=== PATIENT | male | born 2005 | race Caucasian/White ===

== ENCOUNTER 2024-01-12 15:10 | Outpatient (CLI) | payer BC, SELFPAY ==
[2024-01-12 15:55] LABS: Alanine Aminotransferase 23 U/L (6-50); Albumin Level 4.9 g/dL (3.7-5.6); Alkaline Phosphatase 62 U/L (58-237); Anion Gap 9 mmol/L (4-12); Aspartate Amino Transferase 28 U/L (17-59); Bilirubin,Total 0.5 mg/dL (0.2-1.3); Blood Urea Nitrogen 20 mg/dL (8-21); Calcium 9.6 mg/dL (8.9-10.7); Carbon Dioxide 28 mmol/L (22-30); Chloride 103 mmol/L (98-107); Estimated Glomerular Filt Rate > 60; Glucose 85 mg/dL (65-110); Potassium 3.9 mmol/L (3.4-5.0); Sodium 140 mmol/L (134-143)
[2024-01-12 16:04] LABS: Hematocrit 45.9 % (42.0-52.0); Hemoglobin 15.9 g/dL (14.0-18.0); Mean Corpuscular HGB Conc 34.6 g/dl (32-36); Mean Corpuscular Hemoglobin 30.9 pg (26-34); Mean Corpuscular Volume 89.3 fl (80-100); Mean Platelet Volume 10.7 fl (7.4-10.4); Platelet Count Result 242 k/mm3 (150-375); Red Blood Count 5.14 M/mm3 (4.6-6.20); Red Cell Distribution Width 11.9 % (11.5-14.5); White Blood Count 5.6 K/mm3 (4.5-10.0)
== END 2024-01-12 15:11 | disposition home or self-care (01) ==
LOC: ANHLAB 15:12
PROVIDERS: PCP Family Medicine; Visit Provider Family Medicine
DX: G80.8 Other cerebral palsy (principal)
CPT/HCPCS: 36415; 80053; 84443; 85027

== ENCOUNTER 2024-10-22 14:38 | Outpatient (CLI) | payer BC, SELFPAY ==
--- OUTSIDE RECORDS SUMMARY | 2024-10-22 14:42 | XMS_ITS | Clinical Summary ---
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 Esotropia 05/22/2011 Hemiplegic cerebral palsy 08/15/2010 Encounters Date Type Department Care Team Description 08/10/2024 Telephone [facility] Pediatric Neurology [facility] [address] [place] [address] Hailey Avila MD PhD from Last 3 Months Immunizations Immunization Administration Dates Next Due DTaP 07/16/2005 DTaP / Hep B / IPV 2004,2004, 004 DTaP / IPV 03/07/2010 HPV, Quadrivalent 05/17/2016 HPV9 05/16/2017 Hep A, Pediatric 02/19/2007,04/17/2006 Hib (PRP-OMP) 07/16/2005, 5,2004,06/18 Influenza LAIV (Nasal) 05/18/2013,2011,2011,04/24 Influenza, Live, Intranasal, Quadrivalent 05/24/2014 Influenza, Quadrivalent, Angélica l Culture-based MDCK, Preservative Free, Antibiotic Free, Intramuscular 04/23/2020 Influenza, Quadrivalent, Spl it, Intramuscular 05/22/2019 Influenza, Quadrivalent, Spl it, Preservative Free, Intramuscular 05/22/2019,05/18/2018,05/16/2017,04/08,05/10/2015 MMR 05/05/2009,04/23/2005 Meningococcal MCV4P (Menactra) 10/13/2020,2014 Pneumococcal Conjugate 7-Valent 07/16/19 06,2004,2004,06/18 Tdap 05/24/2014 Varicella 05/05/2009,04/23/2005 Medical History Medical History Date Comments Personal history of other di seases of the nervous system and sense organs History of periven tricular leukomalacia - (Added by TW Conv) Cerebral palsy (HCC) Family History Medical History Relation Name Comments No Known Problems Father No Known Problems Mother Relation Name Status Comments Father Alive Mother Alive Social History Tobacco Use Types Packs/Day Years Used Date Smoking Tobacco: Never Smokeless Tobacco: Never Personal Safety Answer Date Recorded Getting School Help Needed Not on file 09/19 Sex and Gender Information Value Date Recorded Sex Assigned at Not on file 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 Gender Identity Not on file Sexual Orientation Not on file Obstetrics History Last Filed Vital Signs Vital Sign Reading Time Taken Comments Blood Pressure 119/69 09/16/2022 4:30 PM CDT Pulse 99 09/16/2022 4:30 PM CDT Temperature 37.2 C (98.9 F) 09/16/2022 4:30 PM CDT Respiratory Rate 18 09/16/2022 4:30 PM CDT Oxygen Saturation - - Inhaled Oxygen Concentration - - Weight 80.5 kg (177 lb 6.4 oz) 09/16/2022 4:30 P M CDT Height 175 cm (5' 8.9 ) 09/16/2022 4:30 PM CDT Body Mass Index 26.28 09/16/2022 4:30 PM CDT Plan of Treatment Health Maintenance Due Date Last Done Comments Depression Screening 2004 Hepatitis C Screening 2004 Meningococcal B Vaccine (1 o f 2 - Standard) 2020 Regular Well Visit/Exam 18-64 2022 DTaP/Tdap/Td Vaccine (7 - Td or Tdap) 05/24/2024 05/24/2014, 03/07/2010, 07/16/2005, Additional history exists Hepatitis B Screening Completed 2004 , 2004, 2004 Pneumococcal vaccine <65 Completed 006, 2004, 2004, Additional history exists Varicella Vaccines Completed 05/05/2009, 04/23/2005 HPV Vaccines Completed 05/16/2017, 05/17/2016 Meningococcal Vaccine Completed 10/13/2020, 015 Influenza Vaccine Completed 04/06/2024, , 05/22/2019, Additional history exists Insurance [employer] [facility] BLUE ACCESS CHOICE [place] [employer] [facility] Care Teams Solar Electric Practitioner Relationship Specialty Start Date End Date Carmelita Meyer MD [address] [place] [address] PCP - General Pediatrics 01/22/21
--- OUTSIDE RECORDS SUMMARY | 2024-10-22 14:42 | XMS_ITS | Referral Summary ---
Author Organization [facility] ospital Address [address] [place] [address] Care Team Providers Care World Renowned Chef And Restaurant Owner Name Role Phone Carmelita Meyer MD Primary Care Provider Encounters Date Type Department Care Team Description 08/10/2024 Telephone [facility] Pediatric Neurology [facility] [address] [place] [address] Hailey Avila MD PhD from Last 3 Months Allergies No known active allergies Medications sertraline [...] 04/05/2013 Esotropia 05/22/2011 Hemiplegic cerebral palsy 08/15/2010 Immunizations Immunization Administration Dates Next Due DTaP [...] 7-Valent 07/16/19 06,2004,2004,06/18 Tdap 05/24/2014 Varicella 05/05/2009,04/23/2005 Social History Tobacco Use Types Packs/Day Years Used Date Smoking Tobacco: Never Smokeless Tobacco: Never Personal Safety Answer Date Recorded Getting School Help Needed Not on file 09/19 Sex and Gender Information Value Date Recorded Sex Assigned at Not on file 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
--- OUTSIDE RECORDS SUMMARY | 2024-10-22 14:42 | XMS_ITS | Clinical Summary ---
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
[2024-10-22 15:11] LABS: Basophils Percent Auto 0.4 % (0.2-1.2); Eosinophils Percent Auto 0.3 % (0-4.4); Hematocrit 49.2 % (42.0-52.0); Hemoglobin 16.7 g/dL (14.0-18.0); Immature Granulocyte Absolute 0.02 K/mm3 (0.00-0.031); Immature Granulocyte Percent A 0.3 % (0-0.5); Lymphocytes Absolute Auto 2.04 K/mm3 (0.9-3.2); Lymphocytes Percent Auto 29.7 % (18.3-44.2); Mean Corpuscular HGB Conc 33.9 g/dl (32-36); Mean Corpuscular Hemoglobin 30.6 pg (26-34); Mean Corpuscular Volume 90.3 fl (80-100); Mean Platelet Volume 10.3 fl (7.4-10.4); Monocytes Absolute Auto 0.5 K/mm3 (0.1-0.6); Monocytes Percent Auto 6.5 % (2.6-8.5); Neutrophils Absolute Auto 4.3 K/mm3 (1.3-6.7); Neutrophils Percent Auto 62.8 % (45.5-73.1); Platelet Count Result 246 k/mm3 (150-375); Red Blood Count 5.45 M/mm3 (4.6-6.20); Red Cell Distribution Width 11.5 % (11.5-14.5); White Blood Count 6.9 K/mm3 (4.5-10.0)
[2024-10-22 15:26] LABS: Alanine Aminotransferase 42 U/L (6-50); Albumin Level 5.3 g/dL (3.5-5.1); Alkaline Phosphatase 56 U/L (38-126); Anion Gap 12 mmol/L (4-12); Aspartate Amino Transferase 37 U/L (17-59); Bilirubin,Total 0.5 mg/dL (0.2-1.3); Blood Urea Nitrogen 17 mg/dL (9-20); Calcium 10.1 mg/dL (8.4-10.2); Carbon Dioxide 30 mmol/L (22-30); Chloride 99 mmol/L (98-107); Cholesterol 167 mg/dL (0-200); Estimated Glomerular Filt Rate > 60; Glucose 88 mg/dL (65-110); HDL Direct 58 mg/dL; Potassium 4.4 mmol/L (3.4-5.0); Sodium 141 mmol/L (137-145); Triglycerides 80 mg/dL (<150)
[2024-10-22 15:37] LABS: LDL Cholesterol Direct 75 mg/dL
[2024-10-22 15:52] LABS: Vitamin D 25 Hydroxy 38.8 ng/mL
[2024-10-22 16:32] LABS: Folic Acid 11.3 ng/mL (2.76->20)
== END 2024-10-22 14:39 | disposition home or self-care (01) ==
LOC: ANHLAB 14:40
PROVIDERS: PCP Family Medicine; Visit Provider Psychiatry & Neurology Psychiatry
DX: F41.1 Generalized anxiety disorder (principal); E55.9 Vitamin D deficiency, unspecified; E03.9 Hypothyroidism, unspecified; E56.9 Vitamin deficiency, unspecified; E78.5 Hyperlipidemia, unspecified; R41.840 Attention and concentration deficit
CPT/HCPCS: 36415; 80053; 80061; 82306; 82607; 82746; 83036; 84443; 85025